=== PATIENT | female | born 1960 | race Caucasian/White ===

== ENCOUNTER 2017-07-26 18:54 | Emergency (ER) | payer SELFPAY ==
[2017-07-26] MEDS: ASPIRIN 325 MG TAB PO (22:35)
[2017-07-26 23:00] LABS: ADD MAN DIFF? NO
[2017-07-26 23:16] LABS: BASOPHIL # 0.1 10^3/ul (0.0-0.1); BASOPHILS % 0.7 % (0.0-2.0); EOSINOPHILS # 0.2 10^3/ul (0.0-0.5); EOSINOPHILS % 3.3 % (0.0-7.0); HEMATOCRIT 38.8 % (37.0-47.0); HEMOGLOBIN 13.1 g/dl (12.0-16.0); LYMPHOCYTES # 2.6 10^3/ul (0.8-2.9); LYMPHOCYTES % 36.5 % (15.0-51.0); MEAN CORPUSCULAR HEMOGLOBIN 29.3 pg (29.0-33.0); MEAN CORPUSCULAR HGB CONC 33.8 g/dl (32.0-37.0); MEAN CORPUSCULAR VOLUME 86.8 fl (82.0-101.0); MEAN PLATELET VOLUME 11.1 fl (7.4-10.4); MONOCYTE # 0.5 10^3/ul (0.3-0.9); NEUTROPHIL # 3.6 10^3/ul (1.6-7.5); NEUTROPHILS % 51.9 % (39.0-77.0); PLATELET COUNT 210 10^3/UL (140-415); RED BLOOD COUNT 4.47 10^6/ul (4.20-5.40); RED CELL DISTRIBUTION WIDTH 13.2 % (11.5-14.5)
[2017-07-26 23:31] LABS: ANION GAP 17 (8-16); BLOOD UREA NITROGEN 17 mg/dl (7-20); CALCIUM 9.6 mg/dl (8.4-10.2); CARBON DIOXIDE 28 mmol/L (21-31); CHLORIDE 104 mmol/L (97-110); CREATININE 0.77 mg/dl (0.44-1.00); GLUCOSE 90 mg/dl (70-220); POTASSIUM 3.7 mmol/L (3.5-5.1); SODIUM 145 mmol/L (135-144)
[2017-07-26 23:43] LABS: B-TYPE NATRIURETIC PEPTIDE 58 PG/ML (0-125)
[2017-07-26 23:51] LABS: TROPONIN-I < 0.012 ng/ml (0.00-0.12)
[2017-07-27] MEDS: IOHEXOL 350MG/ML 50 ML BTL (02:15)
[2017-07-27] MEDS: SOD CHLORIDE 0.9% 100 ML (02:16)
[2017-07-27] MEDS: IOHEXOL 100 ML (02:16)
[2017-07-27 02:41] LABS: TROPONIN-I < 0.012 ng/ml (0.00-0.12)
[2017-07-27] MEDS: SOD CHLORIDE 0.9% 500 ML IV (05:20)
[2017-07-27 06:32] LABS: CREATINE KINASE 92 IU/L (23-200)
[2017-07-27 06:39] LABS: CK INDEX 0.8; CK-MB 0.71 ng/ml (0.0-2.4)
[2017-07-27 06:52] LABS: TROPONIN-I < 0.012 ng/ml (0.00-0.12)
== END 2017-07-27 05:50 | disposition home or self-care (01) ==
LOC: E/R 18:54
DX: R20.2 Paresthesia of skin (principal); R07.9 Chest pain, unspecified; I10 Essential (primary) hypertension; R40.2142 Coma scale, eyes open, spontaneous, at arrival to emergency department; R40.2362 Coma scale, best motor response, obeys commands, at arrival to emergency department; R40.2252 Coma scale, best verbal response, oriented, at arrival to emergency department; Z79.82 Long term (current) use of aspirin
CPT/HCPCS: 36415; 70496; 70498; 71045; 80048; 82550; 82553; 83880; 84484; 85025; 93005; 99285-25